=== PATIENT | female | born 1965 | race American Indian/Alaskan Native ===

== ENCOUNTER 2016-06-21 15:15 | Emergency (ER) | payer MEDICAID ==
--- NOTE | 2016-06-21 15:56 | Emergency Department Report ---
Chief Complaint: Psych Stated Complaint: EVAL Time Seen by Provider: 06/21/16 15:52 - HPI History of Present Illness: 51 y/o female complain of want to harm herself.daughter state that she not cooperative and stating that she having auditory and visual hallucinations. - ROS Review of Systems: per HPI - Exam Vital Signs: Vital Signs 06/21/16 15:18 Temperature 98.4 F Pulse Rate 81 Respiratory 16 Rate Blood Pressure 143/101 O2 Sat by Pulse 100 Oximetry Physical Exam: GENERAL: The patient is well-developed and well-nourished. Patient is in NAD. HENT: Normocephalic. Atraumatic. Patient has moist mucous membranes. Throat: No erythema, swelling or exudates. EYES: Extraocular motions are intact, PERRL NECK: Supple. No meningitic signs are noted. There is no adenopathy noted. CHEST/LUNGS: Clear to auscultation bilaterally. No wheezing, rales or rhonchi noted. There is no respiratory distress noted. HEART/CARDIOVASCULAR: Regular rate and rhythm. Normal S1 S2. No murmurs, rubs , clicks, or gallops. ABDOMEN: Abdomen is soft, nontender.. Bowel sounds normoactive. There is no abdominal distention. Negative rebound tenderness. : Deferred. SKIN: There is no rash. There is no edema. There is no diaphoresis. NEURO: The patient is A&Ox3. The patient has no focal neurologic deficits. MUSCULOSKELETAL: There is no tenderness or deformity. There is no limitation range of motion. PSYCH: Pt anxious with visual and auditory hallucination MSE screening note: Focused history and physical exam performed. Due to findings the following was ordered: ED Disposition for MSE Condition: Stable
[2016-06-21 16:35] LABS: Basophils % (Auto) 0.8 % (0.0-1.8); Eosinophils % (Auto) 1.1 % (0.0-4.3); Hematocrit 39.2 % (30.3-42.9); Hemoglobin 13.2 gm/dl (10.1-14.3); Mean Corpuscular HGB Conc 34 % (30-34); Mean Corpuscular Hemoglobin 29 pg (28-32); Mean Corpuscular Volume 88 fl (79-97); Platelet Count 185 K/mm3 (140-440); Red Blood Count 4.48 M/mm3 (3.65-5.03); Red Cell Distribution Width 14.2 % (13.2-15.2); White Blood Count 5.8 K/mm3 (4.5-11.0)
[2016-06-21 17:21] LABS: Anion Gap 19 mmol/L; BUN/Creatinine Ratio 21.66; Blood Urea Nitrogen 13 mg/dL (7-17); Calcium 8.9 mg/dL (8.4-10.2); Carbon Dioxide 22 mmol/L (22-30); Chloride 103.4 mmol/L (98-107); Glucose 90 mg/dL (65-100); Sodium 140 mmol/L (137-145)
[2016-06-21 21:44] LABS: Urine Drugs of Abuse Note Disclamer
[2016-06-21 22:23] LABS: Bacteria,Urine 1+ /HPF (Negative); Bilirubin,Urine NEG (Negative); Blood,Urine MOD (Negative); Ketones,Urine TR mg/dL (Negative); Leukocyte Esterase,Urine NEG (Negative); Mucus,Urine FEW /HPF; Nitrite,Urine NEG (Negative); Protein,Urine <15 mg/dL mg/dL (Negative); Urobilinogen,Urine < 2.0 mg/dL (<2.0)
[2016-06-22] MEDS ORDERED: ALUM-MAG HYDROX-SIMETH 200-200-20MG/5ML PO ONE (03:43)
[2016-06-22] MEDS ORDERED: GEODON PO ONE (03:45)
--- NOTE | 2016-06-22 03:52 | Emergency Department Report ---
ED Psych HPI - General Chief Complaint: Psych Stated Complaint: MADDIE BOLAÑOS Time Seen by Provider: 06/22/16 03:19 Source: patient Mode of arrival: Ambulatory Limitations: No Limitations - History of Present Illness Initial Comments: 51-year-old female with a past medical history of depression, anemia, schizophrenia presents to the hospital complains of worsening hallucinations. Patient states for the past 2 weeks she has had visual, tactile and auditory hallucinations that are progressively worsening. Patient states she feels like something is crawling all over her body. When she takes showers as like someone else's taking a shower with her which makes her not want to shower for several days. She also feels someone is grasping her hands when she is eating it makes her not went to eat. Patient complains of some nausea, epigastric discomfort. Physical examination is tried to take over her body. She is noncompliant with his psychiatric medication for at least 3 months because she felt like she did not need them. She also has not seen her psychiatrist an approximate 2-3 months. Patient also reports that she feels intermittently suicidal. When asked her plan she states "that's personal". He also states that she feels like killing people sometimes. - Related Data Home Medications Medication Instructions Recorded Confirmed Last Taken Elavil 50 mg PO QHS 09/07/14 07/24/15 Unknown Zoloft 100 mg PO DAILY 09/07/14 07/24/15 Unknown Allergies Allergy/AdvReac Type Severity Reaction Status Date / Time No Known Allergies Allergy Verified 12/09/13 12:23 ED Review of Systems ROS: Stated complaint: MADDIE BOLAÑOS Other details as noted in HPI Comment: All other systems reviewed and negative Other: Constitutional: No fevers chills Eyes: No eye pain visual changes ENT: No ear pain or throat pain Neck: Denies pain Respiratory: Denies cough wheezing shortness of breath Cardiovascular: Denies chest pain, palpitations, syncope GI: Epigastric discomfort and nausea reported : Denies dysuria, urinary frequency, or urgency Musculoskeletal: Denies back pain, joint swelling Skin: Denies rash, lesions, erythema Neurologic: Denies headache, numbness, weakness Psychiatric: As per HPI ED Past Medical Hx - Past Medical History Previous Medical History?: Yes Hx Psychiatric Treatment: Yes (depression, schziophrenia) Additional medical history: fibroids/ANEMIA - Surgical History Past Surgical History?: No - Social History Smoking Status: Never Smoker - Medications Home Medications: Home Medications Medication Instructions Recorded Confirmed Last Taken Type Elavil 50 mg PO QHS 09/07/14 07/24/15 Unknown History Zoloft 100 mg PO DAILY 09/07/14 07/24/15 Unknown History ED Physical Exam - General Limitations: No Limitations - Other Other exam information: General: No limitations, patient is alert in no acute distress Head exam: Atraumatic, normocephalic Eyes exam: Normal appearance, pupils equal reactive to light, extraocular movements intact ENT: Moist mucous membrane, normal oropharynx Neck exam: Normal inspection, full range of motion, no meningismus nontender Respiratory exam: Clear to auscultation bilateral, no wheezes, rales, crackles Cardiovascular: Normal rate and rhythm, normal heart sounds Abdomen: Soft, nondistended, mild epigastric tenderness, with normal bowel sounds, no rebound, or guarding Extremity: Full range of motion normal inspection no deformity Back: Normal Inspection, full range of motion, no tenderness Neurologic: Alert, oriented x3, cranial nerves intact, no motor or sensory deficit, tremulous at times Psychiatric: Auditory, visual, tactile hallucinations Skin: Warm, dry, intact ED Course Vital Signs 06/21/16 06/22/16 15:18 01:15 Temperature 98.4 F 98.3 F Pulse Rate 81 71 Respiratory 16 18 Rate Blood Pressure 143/101 151/91 O2 Sat by Pulse 100 99 Oximetry - Reevaluation(s) Reevaluation #1: 06/22/16 03:51 Geodon and Maalox ordered ED Medical Decision Making - Lab Data Result diagrams: 06/21/16 16:23 06/21/16 16:23 Lab Results 06/21/16 06/21/16 06/21/16 Range/Units 16:23 16:23 16:23 WBC 5.8 (4.5-11.0) K/mm3 RBC 4.48 (3.65-5.03) M/mm3 Hgb 13.2 (10.1-14.3) gm/dl Hct 39.2 (30.3-42.9) % MCV 88 (79-97) fl MCH 29 (28-32) pg MCHC 34 (30-34) % RDW 14.2 (13.2-15.2) % Plt Count 185 (140-440) K/mm3 Lymph % (Auto) 28.3 (13.4-35.0) % [place] % (Auto) 9.1 H (0.0-7.3) % Eos % (Auto) 1.1 (0.0-4.3) % Baso % (Auto) 0.8 (0.0-1.8) % Lymph # 1.6 (1.2-5.4) K/mm3 [place] # 0.5 (0.0-0.8) K/mm3 Eos # 0.1 (0.0-0.4) K/mm3 Baso # 0.0 (0.0-0.1) K/mm3 Seg Neutrophils % 60.7 (40.0-70.0) % Seg Neutrophils # 3.5 (1.8-7.7) K/mm3 Sodium 140 (137-145) mmol/L Potassium 4.0 (3.6-5.0) mmol/L Chloride 103.4 (98-107) mmol/L Carbon Dioxide 22 (22-30) mmol/L Anion Gap 19 mmol/L BUN 13 (7-17) mg/dL Creatinine 0.6 L (0.7-1.2) mg/dL Estimated GFR > 60 ml/min BUN/Creatinine Ratio 21.66 % Glucose 90 (65-100) mg/dL Calcium 8.9 (8.4-10.2) mg/dL HCG, Qual (Negative) Urine Color (Yellow) Urine Turbidity (Clear) Urine pH (5.0-7.0) Ur Specific [place] (1.003-1.030) Urine Protein (Negative) mg/dL Urine Glucose (UA) (Negative) mg/dL Urine Ketones (Negative) mg/dL Urine Blood (Negative) Urine Nitrite (Negative) Urine Bilirubin (Negative) Urine Urobilinogen (<2.0) mg/dL Ur Leukocyte Esterase (Negative) Urine WBC (Auto) (0.0-6.0) /HPF Urine RBC (Auto) (0.0-6.0) /HPF U Epithel Cells (Auto) (0-13.0) /HPF Urine Bacteria (Auto) (Negative) /HPF Calcium Oxalate Crystal Amorphous Crystals Urine Mucus /HPF Salicylates < 0.3 L (2.8-20.0) mg/dL Urine Opiates Screen Urine Methadone Screen Acetaminophen (10.0-30.0) ug/mL Ur Barbiturates Screen Ur Phencyclidine Scrn Ur Amphetamines Screen U Benzodiazepines Scrn Urine Cocaine Screen U Marijuana (THC) Screen Drugs of Abuse Note Plasma/Serum Alcohol (0-0.07) gm% 06/21/16 06/21/16 06/21/16 Range/Units 16:23 16:23 16:23 WBC (4.5-11.0) K/mm3 RBC (3.65-5.03) M/mm3 Hgb (10.1-14.3) gm/dl Hct (30.3-42.9) % MCV (79-97) fl MCH (28-32) pg MCHC (30-34) % RDW (13.2-15.2) % Plt Count (140-440) K/mm3 Lymph % (Auto) (13.4-35.0) % [place] % (Auto) (0.0-7.3) % Eos % (Auto) (0.0-4.3) % Baso % (Auto) (0.0-1.8) % Lymph # (1.2-5.4) K/mm3 [place] # (0.0-0.8) K/mm3 Eos # (0.0-0.4) K/mm3 Baso # (0.0-0.1) K/mm3 Seg Neutrophils % (40.0-70.0) % Seg Neutrophils # (1.8-7.7) K/mm3 Sodium (137-145) mmol/L Potassium (3.6-5.0) mmol/L Chloride (98-107) mmol/L Carbon Dioxide (22-30) mmol/L Anion Gap mmol/L BUN (7-17) mg/dL Creatinine (0.7-1.2) mg/dL Estimated GFR ml/min BUN/Creatinine Ratio % Glucose (65-100) mg/dL Calcium (8.4-10.2) mg/dL HCG, Qual Negative (Negative) Urine Color (Yellow) Urine Turbidity (Clear) Urine pH (5.0-7.0) Ur Specific [place] (1.003-1.030) Urine Protein (Negative) mg/dL Urine Glucose (UA) (Negative) mg/dL Urine Ketones (Negative) mg/dL Urine Blood (Negative) Urine Nitrite (Negative) Urine Bilirubin (Negative) Urine Urobilinogen (<2.0) mg/dL Ur Leukocyte Esterase (Negative) Urine WBC (Auto) (0.0-6.0) /HPF Urine RBC (Auto) (0.0-6.0) /HPF U Epithel Cells (Auto) (0-13.0) /HPF Urine Bacteria (Auto) (Negative) /HPF Calcium Oxalate Crystal Amorphous Crystals Urine Mucus /HPF Salicylates (2.8-20.0) mg/dL Urine Opiates Screen Urine Methadone Screen Acetaminophen < 15.0 (10.0-30.0) ug/mL Ur Barbiturates Screen Ur Phencyclidine Scrn Ur Amphetamines Screen U Benzodiazepines Scrn Urine Cocaine Screen U Marijuana (THC) Screen Drugs of Abuse Note Plasma/Serum Alcohol < 0.01 (0-0.07) gm% 06/21/16 06/21/16 Range/Units 21:36 21:36 WBC (4.5-11.0) K/mm3 RBC (3.65-5.03) M/mm3 Hgb (10.1-14.3) gm/dl Hct (30.3-42.9) % MCV (79-97) fl MCH (28-32) pg MCHC (30-34) % RDW (13.2-15.2) % Plt Count (140-440) K/mm3 Lymph % (Auto) (13.4-35.0) % [place] % (Auto) (0.0-7.3) % Eos % (Auto) (0.0-4.3) % Baso % (Auto) (0.0-1.8) % Lymph # (1.2-5.4) K/mm3 [place] # (0.0-0.8) K/mm3 Eos # (0.0-0.4) K/mm3 Baso # (0.0-0.1) K/mm3 Seg Neutrophils % (40.0-70.0) % Seg Neutrophils # (1.8-7.7) K/mm3 Sodium (137-145) mmol/L Potassium (3.6-5.0) mmol/L Chloride (98-107) mmol/L Carbon Dioxide (22-30) mmol/L Anion Gap mmol/L BUN (7-17) mg/dL Creatinine (0.7-1.2) mg/dL Estimated GFR ml/min BUN/Creatinine Ratio % Glucose (65-100) mg/dL Calcium (8.4-10.2) mg/dL HCG, Qual (Negative) Urine Color Yellow (Yellow) Urine Turbidity Clear (Clear) Urine pH 5.0 (5.0-7.0) Ur Specific [place] 1.025 (1.003-1.030) Urine Protein <15 mg/dl (Negative) mg/dL Urine Glucose (UA) Neg (Negative) mg/dL Urine Ketones Tr (Negative) mg/dL Urine Blood Mod (Negative) Urine Nitrite Neg (Negative) Urine Bilirubin Neg (Negative) Urine Urobilinogen < 2.0 (<2.0) mg/dL Ur Leukocyte Esterase Neg (Negative) Urine WBC (Auto) 2.0 (0.0-6.0) /HPF Urine RBC (Auto) 16.0 (0.0-6.0) /HPF U Epithel Cells (Auto) 2.0 (0-13.0) /HPF Urine Bacteria (Auto) 1+ (Negative) /HPF Calcium Oxalate Crystal Few Amorphous Crystals Few Urine Mucus Few /HPF Salicylates (2.8-20.0) mg/dL Urine Opiates Screen Presumptive negative Urine Methadone Screen Presumptive negative Acetaminophen (10.0-30.0) ug/mL Ur Barbiturates Screen Presumptive negative Ur Phencyclidine Scrn Presumptive negative Ur Amphetamines Screen Presumptive negative U Benzodiazepines Scrn Presumptive negative Urine Cocaine Screen Presumptive negative U Marijuana (THC) Screen Presumptive negative Drugs of Abuse Note Disclamer Plasma/Serum Alcohol (0-0.07) gm% - Medical Decision Making Patient given Geodon and Maalox in the ED. We will restart her most recently no medication on record. patient medically clear for psychiatric transfer - Differential Diagnosis GERD, gastritis, psychosis, schizophrenia, medication noncompliance Critical Care Time: No Critical care attestation.: If time is entered above; I have spent that time in minutes in the direct care of this critically ill patient, excluding procedure time. ED Disposition Clinical Impression: Noncompliance with medication regimen Schizophrenia Qualifiers: Schizophrenia type: unspecified Qualified Code(s): F20.9 - Schizophrenia, unspecified Psychosis Qualifiers: Psychosis type: unspecified psychosis type Qualified Code(s): F29 - Unspecified psychosis not due to a substance or known physiological condition Disposition: DC/TX PSY HOSP/PSY UNIT Is pt being admited?: No Does the pt Need Aspirin: No Condition: Stable Time of Disposition: 05:44 (awaiting acceptance and transfer)
[2016-06-22] MEDS ORDERED: MILK OF MAGNESIA PO PRN (05:40)
[2016-06-22] MEDS ORDERED: ALUM-MAG HYDROX-SIMETH 200-200-20MG/5ML PO PRN (05:40)
[2016-06-22] MEDS ORDERED: TYLENOL PO PRN (05:40)
[2016-06-22] MEDS ORDERED: NON-FORMULARY (Zoloft 100 MG) PO SCH (10:00)
[2016-06-22] MEDS: ZOLOFT PO SCH (11:55)
[2016-06-22] MEDS ORDERED: ELAVIL 50 MG PO SCH (22:00)
[2016-06-22] MEDS: ELAVIL PO SCH (23:51)
[2016-06-23] MEDS: ZOLOFT PO SCH (09:35)
--- NOTE | 2016-06-23 14:43 | Event Note ---
Date: 06/23/16 Vital signs reviewed. Await psychiatric placement. Vital Signs 06/21/16 06/22/16 06/22/16 15:18 01:15 04:11 Temperature 98.4 F 98.3 F Pulse Rate 81 71 79 Respiratory 16 18 16 Rate Blood Pressure 143/101 151/91 Blood Pressure 140/90 [Right] O2 Sat by Pulse 100 99 99 Oximetry 06/22/16 06/22/16 06/22/16 08:02 20:00 22:00 Temperature 98.6 F 98.2 F Pulse Rate 85 75 Respiratory 18 19 20 Rate Blood Pressure Blood Pressure 137/88 133/75 [Right] O2 Sat by Pulse 100 98 Oximetry 06/23/16 06/23/16 07:56 09:35 Temperature Pulse Rate 78 Respiratory 20 18 Rate Blood Pressure Blood Pressure 148/79 [Right] O2 Sat by Pulse 98 98 Oximetry
[2016-06-23] MEDS: ELAVIL PO SCH (22:00)
[2016-06-24 07:55] VITALS: BP 165/99
[2016-06-24] MEDS: ZOLOFT PO SCH (10:02)
== END 2016-06-24 10:53 ==
LOC: EEVIPCON 15:15 → ED 15:15
DX: Z91.14 Patient's other noncompliance with medication regimen (principal); F20.9 Schizophrenia, unspecified; F29 Unspecified psychosis not due to a substance or known physiological condition; D64.9 Anemia, unspecified
CPT/HCPCS: 36415; 80048; 80307; 81001; 84703; 85025; 99285; G0480; 80320

== ENCOUNTER 2017-12-21 18:51 | Emergency (ER) | payer MEDICAID ==
--- NOTE | 2017-12-21 20:33 | Emergency Department Report ---
ED Psych HPI - General Chief Complaint: Psych Stated Complaint: MH Time Seen by Provider: 12/21/17 20:13 Source: patient Mode of arrival: Ambulatory - History of Present Illness Initial Comments: Ms. Vargas is a 52-year-old female with history of schizophrenia, depression and anemia. She is otherwise healthy. She has had several weeks of insomnia. She is not sleeping well. She is also hearing voices. +sensation of bugs crawling on her. She denies suicidal or homicidal ideation. She does feel safe at home. She is no longer followed by psychiatrist. She formerly used medications Zoloft and trazodone. She's been without these medications for several weeks. Her daughter brought her to the ER. 3 weeks ago she had a fall. She fell on both knees. She has lower back pain. Bilateral knee pain. She requires medication for sleep. She desires pain medication. - Related Data Previous Rx's Medication Instructions Recorded Last Taken Type Sertraline [Zoloft] 50 mg PO QDAY #30 tablet 12/21/17 Unknown Rx traZODone [Desyrel] 100 mg PO QHS #30 tablet 12/21/17 Unknown Rx Allergies Allergy/AdvReac Type Severity Reaction Status Date / Time No Known Allergies Allergy Verified 12/09/13 12:23 ED Review of Systems ROS: Stated complaint: MH Other details as noted in HPI ED Past Medical Hx - Past Medical History Previous Medical History?: Yes Hx Kidney Stones: Yes Hx Psychiatric Treatment: Yes (depression, schziophrenia) Additional medical history: fibroids/ANEMIA - Surgical History Past Surgical History?: Yes Additional Surgical History: kidney stones - Social History Smoking Status: Never Smoker Substance Use Type: Alcohol - Medications Home Medications: Home Medications Medication Instructions Recorded Confirmed Last Taken Type Sertraline [Zoloft] 50 mg PO QDAY #30 tablet 12/21/17 Unknown Rx traZODone [Desyrel] 100 mg PO QHS #30 tablet 12/21/17 Unknown Rx ED Physical Exam - General Limitations: No Limitations General appearance: alert, in no apparent distress, other (Ms. Vargas appears well. No evidence of pain or discomfort. Sitting with both legs flexed behind her. NO noted pain or discomfort) - Head Head exam: Present: atraumatic, normocephalic - Eye Eye exam: Present: normal appearance - ENT ENT exam: Present: mucous membranes moist - Neck Neck exam: Present: normal inspection. Absent: tenderness, meningismus - Respiratory Respiratory exam: Present: normal lung sounds bilaterally. Absent: respiratory distress, wheezes, rales, rhonchi - Cardiovascular Cardiovascular Exam: Present: regular rate, normal rhythm, normal heart sounds. Absent: bradycardia, tachycardia, systolic murmur, diastolic murmur, rubs, gallop - GI/Abdominal GI/Abdominal exam: Present: soft, normal bowel sounds. Absent: distended, tenderness, guarding, rebound - Extremities Exam Extremities exam: Present: normal inspection, full ROM, normal capillary refill. Absent: tenderness, pedal edema, joint swelling - Back Exam Back exam: Present: normal inspection. Absent: CVA tenderness (R), CVA tenderness (L), vertebral tenderness - Neurological Exam Neurological exam: Present: alert, oriented X3 - Psychiatric Psychiatric exam: Present: normal affect, normal mood - Skin Skin exam: Present: warm, dry, intact, normal color. Absent: rash ED Course Vital Signs 12/21/17 12/21/17 19:21 20:00 Temperature 98.5 F 98.3 F Pulse Rate 74 72 Respiratory 18 16 Rate Blood Pressure 161/84 Blood Pressure 135/85 [Left] O2 Sat by Pulse 99 100 Oximetry ED Medical Decision Making - Lab Data Result diagrams: 12/21/17 20:39 12/21/17 20:39 Laboratory Results - last 24 hr 12/21/17 12/21/17 12/21/17 20:39 20:39 20:39 WBC RBC Hgb Hct MCV MCH MCHC RDW Plt Count Lymph % (Auto) [place] % (Auto) Eos % (Auto) Baso % (Auto) Lymph # [place]abella # Eos # Baso # Seg Neutrophils % Seg Neutrophils # Sodium 138 Potassium 4.1 Chloride 102.5 Carbon Dioxide 23 Anion Gap 17 BUN 15 Creatinine 0.8 Estimated GFR > 60 BUN/Creatinine Ratio 19 Glucose 94 Calcium 9.6 Salicylates < 0.3 L Acetaminophen < 5.0 L Plasma/Serum Alcohol 12/21/17 12/21/17 20:39 20:39 WBC 6.3 RBC 4.34 Hgb 13.3 Hct 38.7 MCV 89 MCH 31 MCHC 34 RDW 13.6 Plt Count 197 Lymph % (Auto) 36.1 H [place] % (Auto) 7.5 H Eos % (Auto) 1.1 Baso % (Auto) 0.9 Lymph # 2.3 [place]abella # 0.5 Eos # 0.1 Baso # 0.1 Seg Neutrophils % 54.4 Seg Neutrophils # 3.4 Sodium Potassium Chloride Carbon Dioxide Anion Gap BUN Creatinine Estimated GFR BUN/Creatinine Ratio Glucose Calcium Salicylates Acetaminophen Plasma/Serum Alcohol < 0.01 Vital Signs - 24 hr 12/21/17 12/21/17 19:21 20:00 Temperature 98.5 F 98.3 F Pulse Rate 74 72 Respiratory 18 16 Rate Blood Pressure 161/84 Blood Pressure 135/85 [Left] O2 Sat by Pulse 99 100 Oximetry - Medical Decision Making Ms. Vargas is a 52-year-old female who presents with insomnia and hallucinations. She states that she sees visions. She appears well. She appears calm. She is not attending to internal stimuli. She does not have evidence of severe injury of her back or knee. I recommended [id number] Tylenol. She does feel safe at home. No need for emergent psychiatric care. No suicidal or homicidal ideation. No evidence of acute psychosis. She did have consultation by mental health personal property assessor who provided outpatient resources. I provided her with 30 day prescription of Zoloft and trazodone. I recommended [id number] Tylenol for pain relief. She requested Lortab analgesic. Lortab was not indicated at this time. Critical care attestation.: If time is entered above; I have spent that time in minutes in the direct care of this critically ill patient, excluding procedure time. ED Disposition Clinical Impression: Schizophrenia, History of fall Disposition: DC-01 TO HOME OR SELFCARE Is pt being admited?: No Does the pt Need Aspirin: No Condition: Stable Instructions: Insomnia (ED) Prescriptions: traZODone [Desyrel] 100 mg PO QHS #30 tablet Sertraline [Zoloft] 50 mg PO QDAY #30 tablet Referrals: PRIMARY CARE, [Primary Care Provider] - 3-5 Days Time of Disposition: 22:04
[2017-12-21 20:51] LABS: Basophils # (Auto) 0.1 K/mm3 (0.0-0.1); Basophils % (Auto) 0.9 % (0.0-1.8); Eosinophils # (Auto) 0.1 K/mm3 (0.0-0.4); Eosinophils % (Auto) 1.1 % (0.0-4.3); Hematocrit 38.7 % (30.3-42.9); Hemoglobin 13.3 gm/dl (10.1-14.3); Lymphocytes # (Auto) 2.3 K/mm3 (1.2-5.4); Lymphocytes % (Auto) 36.1 % (13.4-35.0); Mean Corpuscular HGB Conc 34 % (30-34); Mean Corpuscular Hemoglobin 31 pg (28-32); Mean Corpuscular Volume 89 fl (79-97); Monocytes # (Auto) 0.5 K/mm3 (0.0-0.8); Monocytes % (Auto) 7.5 % (0.0-7.3); Platelet Count 197 K/mm3 (140-440); Red Blood Count 4.34 M/mm3 (3.65-5.03); Red Cell Distribution Width 13.6 % (13.2-15.2)
[2017-12-21 21:07] VITALS: BP 135/85
[2017-12-21 21:19] LABS: BUN/Creatinine Ratio 19; Blood Urea Nitrogen 15 mg/dL (7-17); Calcium 9.6 mg/dL (8.4-10.2); Hemolysis Index 2
[2017-12-21] MEDS ORDERED: TYLENOL ONE (22:36)
[2017-12-21] MEDS ORDERED: ZOLOFT PO ONE (22:55)
[2017-12-21] MEDS ORDERED: DESYREL PO ONE (22:55)
[2017-12-21] MEDS ORDERED: TYLENOL PO ONE (22:58)
== END 2017-12-22 00:13 | disposition home or self-care (01) ==
LOC: EEVIPCON 18:51 → ED 18:51
DX: F20.9 Schizophrenia, unspecified (principal); F32.9 Major depressive disorder, single episode, unspecified; M54.5 Low back pain; M25.562 Pain in left knee; M25.561 Pain in right knee
CPT/HCPCS: 36415; 80048; 85025; 99284; G0480; 80320